=== PATIENT | female | born 2000 | race African-American/Black ===

== ENCOUNTER 2021-04-26 15:36 | Emergency (ER) | payer OTHER ==
[~2021-04-26] VITALS: Ht 165.1 cm; Wt 66.2 kg
[~2021-04-26 15:36] MED LIST: ERYTHROMYCIN E3.5 G3 OPHTHALMIC; ZYRTEC10 M4 PO
[2021-04-26 15:41] VITALS: BP 123/77
[2021-04-26] MEDS ORDERED: CEPHALEXIN500 MG PO (16:10)
[2021-04-27] MEDS ORDERED: DOXYCYCLINE 10100 MG PO (15:01)
== END 2021-04-26 16:40 | disposition home or self-care (01) ==
LOC: ER 15:36
DX: S20.162A Insect bite (nonvenomous) of breast, left breast, initial encounter (principal); N63.0 Unspecified lump in unspecified breast; W57.XXXA Bitten or stung by nonvenomous insect and other nonvenomous arthropods, initial encounter; Y93.89 Activity, other specified; Y92.89 Other specified places as the place of occurrence of the external cause; Y99.8 Other external cause status

== ENCOUNTER 2021-09-06 09:50 | Emergency (ER) | payer OTHER ==
[~2021-09-06] VITALS: Ht 162.6 cm; Wt 57.1 kg
[~2021-09-06 09:50] MED LIST changes: +CEPHALEXIN500 MG PO; +DOXYCYCLINE 10100 MG PO
[2021-09-06 11:43] LABS: ABSOLUTE NEUTROPHILS 3.5 thou/uL (1.4-8.2); HEMATOCRIT 39.3 % (37.0-47.0); HEMOGLOBIN 13.1 gm/dL (12.0-15.0); LYMPHOCYTES 30.2 % (24.0-44.0); MCH 30.6 pg (26.0-34.0); MCHC 33.3 g/dL (28.0-37.0); MONOCYTES 8.5 % (1.0-8.0); PLATELET COUNT 285 thou/uL (150-400); POLYS 59.3 % (36.0-66.0); RBC 4.27 mil/uL (4.20-5.00); RDW 13.1 % (10.5-14.5); WBC 5.9 thou/uL (4.0-11.0)
[2021-09-06 11:55] LABS: CALCIUM 9.2 mg/dL (8.5-10.1); CREATININE 0.7 mg/dL (0.6-1.0); POTASSIUM 4.5 mmol/L (3.5-5.1)
[2021-09-06 11:57] LABS: URINE BILIRUBIN NEGATIVE (Negative); URINE BLOOD NEGATIVE (Negative); URINE CLARITY CLOUDY; URINE COLOR YELLOW; URINE GLUCOSE-RANDOM* NEGATIVE (Negative); URINE KETONES 3+ (Negative); URINE LEUKOCYTES-REFLEX TRACE (Negative); URINE NITRITE-REFLEX NEGATIVE (Negative); URINE PROTEIN (DIPSTICK) NEGATIVE (Negative); URINE SPECIFIC GRAVITY 1.025 (1.005-1.035)
[2021-09-06 12:03] LABS: ALBUMIN 3.8 g/dL (3.4-5.0); TOTAL BILIRUBIN 0.5 mg/dL (0.2-1.0); TOTAL PROTEIN 7.6 g/dL (6.4-8.2)
[2021-09-06] MEDS ORDERED: VITAMIN B-625 MG PO (12:38)
[2021-09-06] MEDS ORDERED: SLEEP AID25 MG PO (12:38)
[2021-09-06 12:53] VITALS: BP 109/73
== END 2021-09-06 12:54 | disposition home or self-care (01) ==
LOC: ER 09:50
PROVIDERS: Emergency Medicine
DX: J02.9 Acute pharyngitis, unspecified (principal); Z20.822 Contact with and (suspected) exposure to COVID-19